=== PATIENT | male | born 1955 | race African-American/Black ===

== ENCOUNTER 2021-12-15 13:02 | Inpatient (IN) | payer OTHER ==
[2021-12-15 13:30] VITALS: BMI 15.5
[2021-12-15] MEDS ORDERED: MAG HYDROX/AL HYDROX/SIMETH 30 ML UNIT-DOSE CUP PO PRN (16:37)
[2021-12-15] MEDS ORDERED: P-EPHED 60MG/TRIPROLIDI 2.5MG TABLET PO PRN (16:37)
[2021-12-15] MEDS ORDERED: MAGNESIUM HYDROX 2400MG/30ML ORAL SUSPENSION 30 ML CUP PO PRN (16:37)
[2021-12-15] MEDS ORDERED: LOPERAMIDE HCL 2 MG CAPSULE PO PRN (16:37)
[2021-12-15] MEDS ORDERED: MAGNESIUM CITRATE 300 ML BOTTLE PO PRN (16:37)
[2021-12-15] MEDS ORDERED: NICOTINE 10 MG CARTRIDGE (INHALER) IH PRN (16:37)
[2021-12-15] MEDS ORDERED: BENZOCAINE/MENTHOL (CHLORASEPTIC ) LOZENGE MM PRN (16:37)
[2021-12-15] MEDS ORDERED: guaiFENesin 200 MG/10 ML 10 ML UNIT-DOSE CUPS PO PRN (16:37)
[2021-12-15] MEDS ORDERED: TUBERCULIN PPD 5 TU/0.1ML VIAL ID ONE (20:56)
[2021-12-15] MEDS: ATORVASTATIN CA 40 MG TABLET (FP) PO SCH (22:32)
[2021-12-15] MEDS: MELATONIN 5 MG TABLETS PO PRN (22:33)
[2021-12-15] MEDS: THIAMINE HCL 100 MG TABLET (FP) PO SCH (22:33)
[2021-12-16 09:24] LABS: HEMATOCRIT 28.6 % (35.4-49); HEMOGLOBIN 9.9 GM/dL (11.7-16.9); MCH 33.6 pg (25.7-33.7); MCHC 34.7 g/dl (32.0-35.9); MEAN CELL VOLUME 96.8 fl (80-96); MEAN PLT VOLUME 8.1 fl (7.5-11.1); PLATELET COUNT 230 10^3/uL (134-434); RBC 2.95 M/mm3 (4.00-5.60); RDW 14.8 % (11.9-15.9); WHITE BLOOD COUNT 6.2 K/mm3 (4.0-10.0)
[2021-12-16 09:43] LABS: BILIRUBIN,TOTAL 0.2 mg/dL (0.2-1)
[2021-12-16 09:44] LABS: TOT PROT 5.8 g/dl (6.4-8.2)
[2021-12-16 09:45] LABS: BLOOD UREA NITROGEN 19.8 mg/dL (7-18)
[2021-12-16 09:46] LABS: ALBUMIN 2.8 g/dl (3.4-5.0)
[2021-12-16 09:47] LABS: CALCIUM 8.5 mg/dL (8.5-10.1)
[2021-12-16 09:48] LABS: CREATININE 0.8 mg/dL (0.55-1.3)
[2021-12-16] MEDS: LISINOPRIL 5 MG TABLET PO SCH (10:52)
[2021-12-16] MEDS: ASPIRIN 81 MG CHEWABLE TABLETS PO SCH (10:52)
[2021-12-16] MEDS: PRENATAL VITAMINS W/ FOLIC ACID TABLET (FP) PO SCH (10:52)
[2021-12-16] MEDS: ARIPiprazole 15 MG TABLET PO SCH (11:04)
[2021-12-16] MEDS: BENZTROPINE MESYLATE 0.5 MG TABLET (FP) PO SCH (11:29)
[2021-12-16] MEDS: MIRTAZAPINE 15 MG TABLET (FP) PO SCH (11:30)
[2021-12-16 11:38] LABS: SYPHILIS W/ RPR CONF NON-REACTIVE (NONREACTIVE)
[2021-12-16] MEDS: ATORVASTATIN CA 40 MG TABLET (FP) PO SCH (21:43)
[2021-12-16] MEDS: MELATONIN 5 MG TABLETS PO PRN (21:44)
[2021-12-16] MEDS: THIAMINE HCL 100 MG TABLET (FP) PO SCH (21:44)
[2021-12-17] MEDS: PRENATAL VITAMINS W/ FOLIC ACID TABLET (FP) PO SCH (10:18)
[2021-12-17] MEDS: ASPIRIN 81 MG CHEWABLE TABLETS PO SCH (10:19)
[2021-12-17] MEDS: ARIPiprazole 15 MG TABLET PO SCH (10:19)
[2021-12-17] MEDS: BENZTROPINE MESYLATE 0.5 MG TABLET (FP) PO SCH (10:19)
[2021-12-17] MEDS: LISINOPRIL 5 MG TABLET PO SCH (10:19)
[2021-12-17] MEDS: MIRTAZAPINE 15 MG TABLET (FP) PO SCH (10:19)
[2021-12-17] MEDS: IBUPROFEN 400 MG TABLET (FP) PO PRN (10:21)
[2021-12-17] MEDS: ACETAMINOPHEN 325 MG TABLET (FP) PO PRN (19:49)
[2021-12-17] MEDS: THIAMINE HCL 100 MG TABLET (FP) PO SCH (22:18)
[2021-12-17] MEDS: ATORVASTATIN CA 40 MG TABLET (FP) PO SCH (22:18)
[2021-12-17] MEDS: MELATONIN 5 MG TABLETS PO PRN (22:19)
[2021-12-18] MEDS: ASPIRIN 81 MG CHEWABLE TABLETS PO SCH (09:40)
[2021-12-18] MEDS: PRENATAL VITAMINS W/ FOLIC ACID TABLET (FP) PO SCH (09:40)
[2021-12-18] MEDS: MIRTAZAPINE 15 MG TABLET (FP) PO SCH (09:40)
[2021-12-18] MEDS: ARIPiprazole 15 MG TABLET PO SCH (09:41)
[2021-12-18] MEDS: LISINOPRIL 5 MG TABLET PO SCH (09:41)
[2021-12-18] MEDS: BENZTROPINE MESYLATE 0.5 MG TABLET (FP) PO SCH (09:44)
[2021-12-18 09:48] LABS: URINE APPEARANCE CLOUDY; URINE BILIRUBIN NEGATIVE (NEGATIVE); URINE COLOR YELLOW; URINE GLUCOSE (UA) NEGATIVE (NEGATIVE); URINE KETONE NEGATIVE (NEGATIVE); URINE LEUK ESTERASE NEGATIVE (NEGATIVE); URINE NITRITE NEGATIVE (NEGATIVE); URINE PROTEIN NEGATIVE (NEGATIVE); URINE UROBILINOGEN 0.2 mg/dL (0.2-1.0)
[2021-12-18] MEDS: BENZTROPINE MESYLATE 1 MG TABLET PO SCH (11:10)
[2021-12-18] MEDS: ATORVASTATIN CA 40 MG TABLET (FP) PO SCH (21:27)
[2021-12-18] MEDS: ACETAMINOPHEN 325 MG TABLET (FP) PO PRN (21:27)
[2021-12-18] MEDS: THIAMINE HCL 100 MG TABLET (FP) PO SCH (21:28)
[2021-12-18] MEDS: MELATONIN 5 MG TABLETS PO PRN (21:28)
[2021-12-19] MEDS: IBUPROFEN 400 MG TABLET (FP) PO PRN (06:47)
[2021-12-19] MEDS: LISINOPRIL 5 MG TABLET PO SCH (10:05)
[2021-12-19] MEDS: PRENATAL VITAMINS W/ FOLIC ACID TABLET (FP) PO SCH (10:05)
[2021-12-19] MEDS: MIRTAZAPINE 15 MG TABLET (FP) PO SCH (10:06)
[2021-12-19] MEDS: BENZTROPINE MESYLATE 1 MG TABLET PO SCH (10:06)
[2021-12-19] MEDS: ASPIRIN 81 MG CHEWABLE TABLETS PO SCH (10:06)
[2021-12-19] MEDS: ACETAMINOPHEN 325 MG TABLET (FP) PO PRN (10:08)
[2021-12-19] MEDS: ARIPiprazole 15 MG TABLET PO SCH (12:10)
[2021-12-19] MEDS: ATORVASTATIN CA 40 MG TABLET (FP) PO SCH (21:11)
[2021-12-19] MEDS: MELATONIN 5 MG TABLETS PO PRN (21:11)
[2021-12-19] MEDS: THIAMINE HCL 100 MG TABLET (FP) PO SCH (21:11)
[2021-12-20] MEDS: PRENATAL VITAMINS W/ FOLIC ACID TABLET (FP) PO SCH (10:01)
[2021-12-20] MEDS: ASPIRIN 81 MG CHEWABLE TABLETS PO SCH (10:01)
[2021-12-20] MEDS: LISINOPRIL 5 MG TABLET PO SCH (10:12)
[2021-12-20] MEDS: MIRTAZAPINE 15 MG TABLET (FP) PO SCH (11:23)
[2021-12-20] MEDS: BENZTROPINE MESYLATE 1 MG TABLET PO SCH (11:23)
[2021-12-20] MEDS: ARIPiprazole 15 MG TABLET PO SCH (11:25)
[2021-12-20] MEDS: ATORVASTATIN CA 40 MG TABLET (FP) PO SCH (22:05)
[2021-12-20] MEDS: MELATONIN 5 MG TABLETS PO PRN (22:05)
[2021-12-20] MEDS: THIAMINE HCL 100 MG TABLET (FP) PO SCH (22:05)
[2021-12-21] MEDS: MIRTAZAPINE 15 MG TABLET (FP) PO SCH (10:14)
[2021-12-21] MEDS: PRENATAL VITAMINS W/ FOLIC ACID TABLET (FP) PO SCH (10:14)
[2021-12-21] MEDS: ASPIRIN 81 MG CHEWABLE TABLETS PO SCH (10:14)
[2021-12-21] MEDS: BENZTROPINE MESYLATE 1 MG TABLET PO SCH (10:14)
[2021-12-21] MEDS: LISINOPRIL 5 MG TABLET PO SCH (10:14)
[2021-12-21] MEDS: ARIPiprazole 15 MG TABLET PO SCH (10:15)
[2021-12-21] MEDS: MELATONIN 5 MG TABLETS PO PRN (21:38)
[2021-12-21] MEDS: THIAMINE HCL 100 MG TABLET (FP) PO SCH (21:38)
[2021-12-21] MEDS: ATORVASTATIN CA 40 MG TABLET (FP) PO SCH (21:38)
[2021-12-22] MEDS: IBUPROFEN 400 MG TABLET (FP) PO PRN (06:15)
[2021-12-22] MEDS: FERROUS SO4 325 MG TABLET (FP) PO SCH (07:03)
[2021-12-22] MEDS: ASPIRIN 81 MG CHEWABLE TABLETS PO SCH (09:48)
[2021-12-22] MEDS: MIRTAZAPINE 15 MG TABLET (FP) PO SCH (09:48)
[2021-12-22] MEDS: LISINOPRIL 5 MG TABLET PO SCH ×2 (09:48→10:41)
[2021-12-22] MEDS: BENZTROPINE MESYLATE 1 MG TABLET PO SCH (09:48)
[2021-12-22] MEDS: PRENATAL VITAMINS W/ FOLIC ACID TABLET (FP) PO SCH (09:49)
[2021-12-22] MEDS: ARIPiprazole 15 MG TABLET PO SCH (09:51)
[2021-12-22] MEDS: ACETAMINOPHEN 325 MG TABLET (FP) PO PRN (10:00)
[2021-12-22] MEDS: ATORVASTATIN CA 40 MG TABLET (FP) PO SCH (21:40)
[2021-12-22] MEDS: THIAMINE HCL 100 MG TABLET (FP) PO SCH (21:40)
[2021-12-23] MEDS: FERROUS SO4 325 MG TABLET (FP) PO SCH (07:05)
[2021-12-23] MEDS: ASPIRIN 81 MG CHEWABLE TABLETS PO SCH (10:30)
[2021-12-23] MEDS: LISINOPRIL 5 MG TABLET PO SCH (10:30)
[2021-12-23] MEDS: BENZTROPINE MESYLATE 1 MG TABLET PO SCH (10:30)
[2021-12-23] MEDS: MIRTAZAPINE 15 MG TABLET (FP) PO SCH (10:30)
[2021-12-23] MEDS: PRENATAL VITAMINS W/ FOLIC ACID TABLET (FP) PO SCH (10:30)
[2021-12-23] MEDS: ARIPiprazole 15 MG TABLET PO SCH (10:30)
[2021-12-23] MEDS: ACETAMINOPHEN 325 MG TABLET (FP) PO PRN (11:18)
[2021-12-23] MEDS: MELATONIN 5 MG TABLETS PO PRN (22:04)
[2021-12-23] MEDS: THIAMINE HCL 100 MG TABLET (FP) PO SCH (22:04)
[2021-12-23] MEDS: ATORVASTATIN CA 40 MG TABLET (FP) PO SCH (22:04)
[2021-12-24] MEDS: FERROUS SO4 325 MG TABLET (FP) PO SCH (07:05)
[2021-12-24] MEDS: PRENATAL VITAMINS W/ FOLIC ACID TABLET (FP) PO SCH (10:55)
[2021-12-24] MEDS: BENZTROPINE MESYLATE 1 MG TABLET PO SCH (10:56)
[2021-12-24] MEDS: ASPIRIN 81 MG CHEWABLE TABLETS PO SCH (10:56)
[2021-12-24] MEDS: MIRTAZAPINE 15 MG TABLET (FP) PO SCH (10:56)
[2021-12-24] MEDS: LISINOPRIL 5 MG TABLET PO SCH (10:56)
[2021-12-24] MEDS: ARIPiprazole 15 MG TABLET PO SCH (10:57)
[2021-12-24] MEDS: ATORVASTATIN CA 40 MG TABLET (FP) PO SCH (21:39)
[2021-12-24] MEDS: MELATONIN 5 MG TABLETS PO PRN (21:39)
[2021-12-24] MEDS: THIAMINE HCL 100 MG TABLET (FP) PO SCH (21:39)
[2021-12-25] MEDS: ACETAMINOPHEN 325 MG TABLET (FP) PO PRN ×3 (06:30→21:27)
[2021-12-25] MEDS: FERROUS SO4 325 MG TABLET (FP) PO SCH (07:01)
[2021-12-25 07:17] VITALS: RESP 18
[2021-12-25] MEDS: PRENATAL VITAMINS W/ FOLIC ACID TABLET (FP) PO SCH (10:10)
[2021-12-25] MEDS: ASPIRIN 81 MG CHEWABLE TABLETS PO SCH (10:11)
[2021-12-25] MEDS: ARIPiprazole 15 MG TABLET PO SCH (10:11)
[2021-12-25] MEDS: MIRTAZAPINE 15 MG TABLET (FP) PO SCH (10:11)
[2021-12-25] MEDS: BENZTROPINE MESYLATE 1 MG TABLET PO SCH (10:15)
[2021-12-25] MEDS: LISINOPRIL 5 MG TABLET PO SCH (10:16)
[2021-12-25] MEDS: ATORVASTATIN CA 40 MG TABLET (FP) PO SCH (21:26)
[2021-12-25] MEDS: THIAMINE HCL 100 MG TABLET (FP) PO SCH (21:27)
[2021-12-26] MEDS: IBUPROFEN 400 MG TABLET (FP) PO PRN (07:00)
[2021-12-26] MEDS: FERROUS SO4 325 MG TABLET (FP) PO SCH (07:07)
[2021-12-26] MEDS: PRENATAL VITAMINS W/ FOLIC ACID TABLET (FP) PO SCH (09:55)
[2021-12-26] MEDS: ASPIRIN 81 MG CHEWABLE TABLETS PO SCH (09:58)
[2021-12-26] MEDS: BENZTROPINE MESYLATE 1 MG TABLET PO SCH (09:58)
[2021-12-26] MEDS: MIRTAZAPINE 15 MG TABLET (FP) PO SCH (09:58)
[2021-12-26] MEDS: LISINOPRIL 5 MG TABLET PO SCH (09:59)
[2021-12-26] MEDS: ARIPiprazole 15 MG TABLET PO SCH (09:59)
[2021-12-26] MEDS: THIAMINE HCL 100 MG TABLET (FP) PO SCH (21:44)
[2021-12-26] MEDS: ATORVASTATIN CA 40 MG TABLET (FP) PO SCH (21:44)
[2021-12-26] MEDS: MELATONIN 5 MG TABLETS PO PRN (21:45)
[2021-12-27 06:53] VITALS: TEMP 98.6
[2021-12-27] MEDS: FERROUS SO4 325 MG TABLET (FP) PO SCH (07:06)
[2021-12-27] MEDS: ASPIRIN 81 MG CHEWABLE TABLETS PO SCH (10:44)
[2021-12-27] MEDS: PRENATAL VITAMINS W/ FOLIC ACID TABLET (FP) PO SCH (10:45)
[2021-12-27] MEDS: BENZTROPINE MESYLATE 1 MG TABLET PO SCH (10:45)
[2021-12-27] MEDS: MIRTAZAPINE 15 MG TABLET (FP) PO SCH (10:45)
[2021-12-27] MEDS: LISINOPRIL 5 MG TABLET PO SCH (10:45)
[2021-12-27] MEDS: ARIPiprazole 15 MG TABLET PO SCH (10:45)
[2021-12-27 10:56] VITALS: BP 120/60; PULSE 82
== END 2021-12-27 15:05 | disposition home or self-care (01) | DRG 895 ==
LOC: YASAS 13:02 → Y5N 16:12
PROVIDERS: ADMIT Allergy & Immunology; ATTEND Psychiatry & Neurology Pain Medicine
PROC: HZ42ZZZ Group Counseling for Substance Abuse Treatment, Cognitive-Behavioral (ICD-10-PCS; principal; 2021-12-15)
DX: F14.20 Cocaine dependence, uncomplicated (principal); F20.0 Paranoid schizophrenia; I42.2 Other hypertrophic cardiomyopathy; I24.9 Acute ischemic heart disease, unspecified; F12.20 Cannabis dependence, uncomplicated; F17.210 Nicotine dependence, cigarettes, uncomplicated; F19.24 Other psychoactive substance dependence with psychoactive substance-induced mood disorder; I10 Essential (primary) hypertension; E78.5 Hyperlipidemia, unspecified; D64.9 Anemia, unspecified; M25.551 Pain in right hip; G89.29 Other chronic pain; R41.841 Cognitive communication deficit; R29.6 Repeated falls; R26.2 Difficulty in walking, not elsewhere classified; Z99.89 Dependence on other enabling machines and devices; Z62.810 Personal history of physical and sexual abuse in childhood; Z86.79 Personal history of other diseases of the circulatory system; Z91.19 Patient's noncompliance with other medical treatment and regimen; Z56.0 Unemployment, unspecified
CPT/HCPCS: 36415; 72100-TC-FY; 80053; 81003; 85027; 86780; 86803; C9803-CS; U0003; U0005